=== PATIENT | female | born 1970 | race Two or more races ===

== ENCOUNTER 2016-05-29 16:55 | Emergency (ER) | payer MEDICAID ==
[2016-05-29 17:02] VITALS: RESP 16; O2SAT 96
[2016-05-29] MEDS ORDERED: ACETAMINOPHEN 500 MG TAB PO ONE (17:41)
--- NOTE | 2016-05-29 17:44 | EDPHY ---
H & P Time Seen by Provider: 05/29/16 17:08 HPI/ROS: CHIEF COMPLAINT: My whole body hurts HISTORY OF PRESENT ILLNESS: This is a 46-year-old female who presents with whole body pain. She also reports swelling of her arms, legs, and feet. She has a history of hypertension and is compliant with her lisinopril/ hydrochlorothiazide. She is a wcv-csuqhxm-nxsvbjwol diabetic. She reports arthritis and thinks that she has rheumatoid arthritis. Whole-body pain that she is complaining of has been present for the past 3-4 months. She also describes acute on chronic low back pain. No recent trauma, but she does say that she has slipped on the ice within the past few weeks. She was incarcerated until late March 2016 and was treated with Tylenol. Prior to that she had been taking oxycodone. Since leaving alf she has been taking ibuprofen 800 mg 3 -4 times daily. She also takes gabapentin 1000 mg in the morning, 1000 mg at noon, and 2000 mg at night. She continues with persistent diffuse pain. She is not aware of joint swelling, joint redness, or joint deformities. She has not had fever. Her PCP is in [place], [place] and she has not been able to get an appointment with that office until the second week of June. She has apparently been seen in at least one other emergency room for the above complaints. She tells me that she was given Flexeril, but did not fill the prescription. REVIEW OF SYSTEMS: A ten point review of systems was performed and is negative with the exception of the items mentioned in the HPI. Past Medical/Surgical History: 1. Hypertension 2. Vwm-[id number]-umxhiuehk diabetes 3. Arthritis 4. Surgery on the right knee Social History: She is accompanied by her boyfriend today. She is homeless, staying at the [facility] in [place]. She smokes 1 pack of cigarettes a day. She does not use alcohol or illicit drugs. Smoking Status: Current every day smoker Physical Exam: General Appearance: Alert. Vital signs reviewed. Blood pressure 135/78. Eyes: Pupils equal and round, no conjunctival injection, no discharge. Anicteric. ENT, Mouth: Mucous membranes are moist, no oropharyngeal erythema or edema. Neck: No lymphadenopathy, supple. Respiratory: Lungs are clear to auscultation; no wheezes, rales, or rhonchi. Cardiovascular: Regular rate and rhythm; no murmur, rub, or gallop. Gastrointestinal: Abdomen is obese, soft and nontender, no masses or organomegaly, bowel sounds normal. Skin: Warm and dry, no rashes on exposed skin, normal color. Back: Nontender to palpation over the thoracolumbar spine. No CVAT. Extremities: No lower extremity edema, no calf tenderness or swelling. No joint deformities. No joint redness or warmth. I do not appreciate any extremity edema. Neurological: Alert and oriented. Moving all four extremities easily and equally. Strength 5/5 all four extremities. Sensation intact to light touch. Gait normal. Able to heel and toe walk. Psychiatric: Normal affect. Constitutional: Initial Vital Signs Temperature (C) 36.7 C 05/29/16 16:58 Heart Rate 94 05/29/16 16:58 Respiratory Rate 16 05/29/16 16:58 Blood Pressure 135/78 H 05/29/16 16:58 O2 Sat (%) 96 05/29/16 16:58 O2 Delivery Mode Room Air Allergies/Adverse Reactions: Sulfa (Sulfonamide Antibiotics) Allergy (Verified 05/29/16 17:02) Home Medications: Medication Instructions Recorded GLIPIZIDE 05/29/16 IBUPROFEN 05/29/16 Lisinopril 05/29/16 Metformin 05/29/16 Medical Decision Making ED Course/Re-evaluation: She was given tylenol 1000 mg PO. She continued to complain of diffuse pain and then focused on her low back pain. She was re-examined and has no neurologic deficits. She denies bowel or bladder complaints. UA negative for UTI. No CVAT and I do not suspect pyelonephritis. She is not febrile and I do not suspect spinal abscess. She became tearful when I informed her that I did not think xrays are needed ( no recent trauma, no midline vertebral pain). I told her that I will not provide or prescribe opiates to her. PDMP does not show recent activity. She was using oxycodone prior to being incarcerated and my suspicion is that she is drug seeking today. This is her second or third ED visit for pain, per her reports. She does have a PCP in [place]. I am recommending tylenol, ibuprofen, smoking cessation, physical therapy (this will be difficult for her as she is homeless). - Data Points Laboratory Results: Laboratory Results 05/29/16 17:42 05/29/16 17:42 Medications Given: Discontinued Medications Acetaminophen (Tylenol) 1,000 mg PO EDNOW ONE Stop: 05/29/16 17:42 Last Admin: 05/29/16 17:49 Dose: 1,000 mg Departure - Departure Disposition: Home, Routine, Self-Care Clinical Impression: Back pain Qualifiers: Qualifier Code: (M54.5) Low back pain Condition: Good Instructions: Back Pain (ED) Additional Instructions: Adult Pain & Fever Control: We recommend Acetaminophen (Tylenol) and Ibuprofen (Motrin,Advil) for pain and fever control. When fever is high or pain severe, both drugs can be used at the same time, but at different intervals. Please note the time differences. Your dose is: Acetaminophen 650mg every 4 to 6 hours Ibuprofen 800mg every 8 hours with food OR Note: do not take Acetaminophen with Hydrocodone (Vicodin, Lortab) or Oycodone (Percocet). These medications also contain Acetaminophen. No more than 3000mg of Acetaminophen should be taken in 24 hours (for an adult). Keep your appointment with your doctor in [place]. [facility]. It shows that you have been in the emergency department since almost 4 in the afternoon until 7:30 p.m.. They should accept you tonight, as you were not able to get there earlier. Referrals: IN STATE,. [Primary Care Provider] - As per Instructions
[2016-05-29 17:56] LABS: % IMMATURE GRANULYOCYTES 0.4 % (0.0-1.1); ABSOLUTE IMMATURE GRANULOCYTES 0.03 10^3/uL (0.00-0.10); ADD DIFF? NO; ADD MORPH? NO; ADD SCAN? NO; ATYPICAL LYMPHOCYTE FLAG 20 (0-99); FRAGMENT RBC FLAG 0 (0-99); HEMATOCRIT 40.6 % (38.0-47.0); HEMOGLOBIN 13.7 g/dL (12.6-16.3); LEFT SHIFT FLG 0 (0-99); LIPEMIA HEMOLYSIS FLAG 80 (0-99); MEAN CELL HEMOGLOBIN 33.1 pg (27.9-34.1); MEAN CELL HEMOGLOBIN CONCENTR. 33.7 g/dL (32.4-36.7); MEAN CELL VOLUME 98.1 fL (81.5-99.8); MEAN PLATELET VOLUME 9.5 fL (8.7-11.7); PLATELET CLUMPS FLAG 0 (0-99); PLATELET COUNT 279 10^3/uL (150-400); RED BLOOD CELL COUNT 4.14 10^6/uL (4.18-5.33); RED CELL DISTRIBUTION WIDTH 12.3 % (11.5-15.2)
[2016-05-29 18:14] LABS: ANION GAP 10 mEq/L (8-16); CALCIUM 8.8 mg/dL (8.5-10.4); CARBON DIOXIDE 25 mEq/l (22-31); CHLORIDE 103 mEq/L (97-110); CREATININE 0.9 mg/dL (0.6-1.0); GLOMERULAR FILTRATION RATE > 60; GLUCOSE 149 mg/dL (70-100); POTASSIUM 4.2 mEq/L (3.5-5.2); SODIUM 138 mEq/L (134-144)
[2016-05-29 18:38] VITALS: BP 110/68; PULSE 74; TEMP 97.7
[2016-05-29 18:58] LABS: COLOR YELLOW; LEUKOCYTE ESTERASE,URINE NEGATIVE (NEGATIVE); NITRITE,URINE NEGATIVE (NEGATIVE)
== END 2016-05-29 19:30 | disposition home or self-care (01) ==
DX: M54.5 Low back pain (principal); I10 Essential (primary) hypertension; E11.9 Type 2 diabetes mellitus without complications; F17.200 Nicotine dependence, unspecified, uncomplicated